=== PATIENT | male | born 1970 | race Caucasian/White ===

== ENCOUNTER 2022-07-04 08:41 | Outpatient (CLI) | payer OTHER, SELFPAY ==
[2022-07-04 15:59] LABS: Cholesterol* 203 mg/dL (90-199); Glucose* 95 mg/dL (60-115); HDL Cholesterol* 68 mg/dL (>=40); LDL Cholesterol Calculated 120 mg/dL (<100); Triglycerides* 74 mg/dL (40-149)
[2022-07-04 16:28] LABS: PSA Screen* 1.81 ng/mL (0.10-4.00)
[2022-07-06 09:47] LABS: Testosterone, Adult Male 770 ng/dL (300-890)
== END 2022-07-04 08:42 | disposition home or self-care (01) ==
PROVIDERS: PCP Nurse Practitioner Family; Visit Provider Nurse Practitioner Family
DX: Z00.00 Encounter for general adult medical examination without abnormal findings (principal); R79.89 Other specified abnormal findings of blood chemistry; R03.0 Elevated blood-pressure reading, without diagnosis of hypertension; Z13.1 Encounter for screening for diabetes mellitus; Z12.5 Encounter for screening for malignant neoplasm of prostate; Z13.6 Encounter for screening for cardiovascular disorders
CPT/HCPCS: 80061; 82947; 84153; 84403

== ENCOUNTER 2023-06-16 15:46 | Outpatient (CLI) | payer BC, SELFPAY ==
--- NOTE | 2023-06-16 16:00 | CRLHL7_ITS ---
For Patients: As a result of the Century Cures Act, medical imaging exams and procedure reports are released immediately into your electronic medical record. You may view this report before your referring provider. If you have questions, please contact your health care provider. Indication: Lump Technique: Grayscale and color Doppler ultrasound of the right lower back above the gluteal region performed corresponding to the area of concern. Comparison: None Findings: Normal soft tissues are present. No fluid collection or mass. No abnormal vascularity. Impression: Negative sonogram. No suspicious findings. Dictated by Hernesto Mendes MD @ 06/18/2023 9:13:05 AM (Electronically Signed)
== END 2023-06-16 15:47 | disposition home or self-care (01) ==
LOC: US 15:47
PROVIDERS: PCP Nurse Practitioner Family; Visit Provider Nurse Practitioner Family
DX: M54.9 Dorsalgia, unspecified (principal)
CPT/HCPCS: 76705

== ENCOUNTER 2023-07-20 09:00 | Outpatient (RCR) | payer BC, SELFPAY | END 2023-11-17 23:59 | disposition home or self-care (01) | PROVIDERS: PCP Nurse Practitioner Family; Visit Provider Nurse Practitioner Family | DX: M54.9 Dorsalgia, unspecified (principal); Z51.89 Encounter for other specified aftercare | CPT/HCPCS: 97110; 97140; 97161 ==

== ENCOUNTER 2024-01-29 18:00 | Emergency (ER) | payer BC, SELFPAY ==
[2024-01-29 18:11] VITALS: BP 138/78; PULSE 73; RESP 18; TEMP 37.3; O2SAT 97; BMI 33.5
--- NOTE | 2024-01-29 18:18 | ED_ITS ---
HPI - Abdominal Pain General Time Seen by Provider: 18:18 Date Seen: 01/29/24 Chief Complaint: Abdominal Pain Stated Complaint: Abdominal pain Time Seen by Provider: 01/29/24 18:18 Source: patient, family and RN notes reviewed Mode of arrival: ambulatory Limitations: no limitations History of Present Illness HPI narrative: Andrew is a very pleasant 53-year-old gentleman previously healthy who comes to the emergency room for evaluation of left lower quadrant pain. Patient noted the onset of an aching type left lower quadrant pain last evening. He states he feels bloated and that he feels like if he could just have a bowel movement or passed some gas the symptoms would improve. He notes some loose stools last night that were nonbloody. He notes some mild nausea today. Today he now has worsening discomfort that he describes as sharp. He denies any hematuria dysuria or history of kidney stones. He has no family history or personal history of diverticulitis or colitis. Even movement increases his discomfort. He has not taken any medication for pain at this point. Pain possibly radiates into his back. Previous colonoscopy 2-3 years ago and was normal. Related Data Home Medications ?Medication ?Instructions ?Recorded ?Confirmed No Known Home Medications 06/08/23 06/08/23 Allergies Allergy/AdvReac Type Severity Reaction Status Date / Time No Known Allergies Allergy Unknown Verified 01/29/24 18:49 Review of Systems Status of ROS Reports: 10 or more systems reviewed and unremarkable except as noted in History and below Const Denies: fever, chills or fatigue Eyes Denies: change in vision ENMT Denies: neck pain or nasal congestion Cardio Reports: lightheadedness; Denies: chest pain, palpitations, swelling of feet/ankles or shortness of breath with exertion Resp Denies: shortness of breath or cough GI Reports: abdominal pain and nausea; Denies: vomiting Denies: painful urination, urinary frequency, urinary urgency or blood in urine Musculo Denies: neck pain Endo Denies: fatigue PFSH PFSH Surgical History History of hand surgery ?Z98.890 - Other specified postprocedural states (ICD-10) Family History Father Myocardial infarction Smoker Heart failure Brother Depression Uncle Schizophrenia Social History Narrative: . 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 Formal exercise, both cardio and weight. Non-smoker. Alcohol, 4 servings per week. No illicit drug use. Smoking Status: Never smoker Little interest or pleasure in doing things: not at all Feeling down, depressed, or hopeless: not at all Exam Narrative: Exam Narrative: Andrew is alert and oriented. No acute distress. He is nontoxic in appearance. External ears eyes nose clear. Mentation is normal. Heart with regular rate and rhythm and lungs are clear to auscultation. No CVA tenderness with percussion. Abdomen shows left lower quadrant tenderness. No masses are palpated. Abdomen is otherwise soft. Lower extremities without edema. Moving all extremities. Const: Vital Signs, click to edit/add: Vital Signs - 24 hr 01/29/24 18:11 01/29/24 20:06 Temperature 99.2 F Pulse Rate [Pulse Oximeter] 73 81 Respiratory Rate 18 16 Blood Pressure [Ri ght Upper Arm] 138/78 146/82 H Pulse Oximetry 97 96 Oxygen Delivery Me thod Room Air Room Air Documenting provider has reviewed patient's vital signs: yes Course Course ED Course: Differential diagnosis includes but is not limited to diverticulitis, colitis, constipation, ureteral colic. Will place IV give 1 L of normal saline, Toradol 50 mg IV, Zofran 4 mg IV. Will check urinalysis CBC comprehensive panel CRP. Reevaluation(s) Reevaluation #1: Patient much improved after dose of Toradol and Zofran as well as a L of fluid. Vital Signs Vital signs: Initial Vital Signs Temperature 99.2 F 01/29/24 18:11 Temperature Source Temporal Artery Scan 01/29/24 18:11 Pulse Rate 73 01/29/24 18:11 Respiratory Rate 18 01/29/24 18:11 Blood Pressure 138/78 01/29/24 18:11 Blood Pressure Mean 98 01/29/24 18:11 Pulse Oximetry 97 01/29/24 18:11 Oxygen Delivery Method Room Air 01/29/24 18:11 Vital Signs Temperature 99.2 F 01/29/24 18:11 Pulse Rate 73 01/29/24 18:11 Respiratory Rate 18 01/29/24 18:11 Blood Pressure 138/78 01/29/24 18:11 Pulse Oximetry 97 01/29/24 18:11 Oxygen Delivery Method Room Air 01/29/24 18:11 Temperature 99.2 F 01/29/24 18:11 Pulse Rate 81 01/29/24 20:06 Respiratory Rate 16 01/29/24 20:06 Blood Pressure 146/82 H 01/29/24 20:06 Pulse Oximetry 96 01/29/24 20:06 Oxygen Delivery Method Room Air 01/29/24 20:06 Medications Administered Medications: Discontinued Medications Generic Name Dose Route Start Last Admin Trade Name Мария PRN Reason Stop Dose Admin Sodium Chloride 1,000 mls @ 1,000 mls/hr 01/29/24 18:33 01/29/24 20:06 0.9 % Sodium Chloride 1000 Ml IV 01/29/24 19:32 Infused .Q1H SRIDEVI Infusion Ketorolac Tromethamine 15 mg 01/29/24 18:33 01/29/24 19:11 Ketorolac 15 Mg/Ml Inj IVP 01/29/24 18:34 15 mg ONCE ONE Administration Ondansetron HCl 4 mg 01/29/24 18:33 01/29/24 19:11 Ondansetron 2 Mg/Ml Inj IVP 01/29/24 18:34 Not Given ONCE ONE MDM - Abdominal Pain MDM Narrative Medical decision making narrative: 1. Colitis-patient noted to have CT confirm colitis. I have spoken to our surgeon on-call Dr. Santiago in regards to this patient. She is wondering if there is maybe also an element of diverticulitis. At this time recommending the use of an antibiotic. Will place Andrew on Augmentin 875 p.o. b.i.d. x7 days. For pain ibuprofen may be used. Her pain not relieved by ibuprofen I have provided Auburn 5/3 25 1-2 tablets p.o. Q 4-6 hours as needed 10. Tablets. Both of these medications were given out via [employer] machine. Soft diet. Would recommend use of Colace for stool softening 2. Disposition-home at this time. Follow-up primary MD next week for re- evaluation. Return to the emergency room for fever, worsening pain, vomiting and as needed. Medical Records Attestation: I reviewed the patient's medical records. Lab Data Attestation: I reviewed the patient's lab results. Labs: Lab Results 01/29/24 Range/Units 18:44 WBC 9.45 (4.50-11.00) K/uL RBC 4.66 (4.30-5.90) m/uL Hgb 13.6 (13.5-17.5) gm/dL Hct 40.8 (37.0-53.0) % MCV 88 (80-100) fL MCH 29 (26-34) pg MCHC 33 (32-36) gm/dL RDW Coeff of Isabel 13.7 (11.5-15.5) % Plt Count 240 (140-440) K/uL Neut % (Auto) 86.3 H (42.0-72.0) % Lymph % (Auto) 7.7 L (20-44) % Jackson % (Auto) 4.8 (0.0-11.0) % Eos % (Auto) 0.6 (0.0-7.0) % Baso % (Auto) 0.3 (0.0-3.0) % Neut # (Auto) 8.20 H (1.7-7.0) K/uL Lymph # (Auto) 0.70 L (0.90-2.90) K/uL Jackson # (Auto) 0.50 (0.00-0.90) K/UL Eos # (Auto) 0.06 (0.00-0.50) K/uL Baso # (Auto) 0.03 (0.00-0.30) K/uL Abs Immat Gran (auto) 0.03 (0.00-0.30) K/uL Imm/Tot Granulo (auto) 0.3 % Sodium 137 (135-149) mmol/L Potassium 3.9 (3.6-5.1) mmol/L Chloride 102 (96-114) mmol/L Carbon Dioxide 27 (20-32) mmol/L Anion Gap 8 (7-15) mEq/L BUN 16 (7-30) mg/dL Creatinine 0.9 (0.5-1.5) mg/dL Estimated Creat Clear 102.26 Estimated GFR 103 ml/min Glucose 107 (60-115) mg/dL Calcium 9.4 (8.4-10.6) mg/dL Total Bilirubin 1.1 (0.1-1.5) mg/dL AST 31 (12-35) U/L ALT 21 (4-50) U/L Alkaline Phosphatase 51 (40-150) U/L C-Reactive Protein 0.5 (0.5-1.0) mg/dL Total Protein 7.1 (6.0-8.3) g/dL Albumin 4.5 (3.3-5.0) g/dL Imaging Data Abdominal CT: Attestation: I have reviewed the pertinent imaging results. My impression: I do note significant inflammation in the descending colon with surrounding stranding. Radiologist's impression: Lower chest: Unremarkable. Liver: Too small to characterize low-attenuation lesions in the liver Gallbladder and bile ducts: No stones or inflammation. No biliary dilatation. Pancreas: Unremarkable. No mass or inflammation. Spleen: Normal in size. No masses. Adrenal glands: Normal in size. No nodules. Kidneys: Normal in size. No suspicious masses, stones, or hydronephrosis. GI tract: Normal appendix. Colonic wall thickening inflammatory stranding along the descending colon. Mild diverticulosis. Vasculature: Abdominal aorta is normal in caliber. Lymph nodes: No lymphadenopathy. Pelvis: Enlarged prostate gland wall thickening of the urinary bladder nondistended Bones: Unremarkable for age. IMPRESSION: 1. Colitis involving the descending colon Discharge Plan Discharge Clinical Impression: Colitis Patient Disposition: Home, Self-Care Condition: Improved Additional Instructions: 1. The CT shows colitis or inflammation of the colon. There may be an underlying diverticulitis which is infection. We are going to treat you with a medicine called Augmentin for 7 days. You can pick this up in our [employer] machine in our lobby. 2. Ibuprofen may be used as needed for discomfort. A few tablets of Auburn which is a narcotic and Tylenol called hydrocodone is also available in our vending machine. Do not use alcohol or drive when using this medication as it is sedating. Know that this medicine may cause constipation and I think it would be a very good idea if you were put on a stool softener such as Colace for the duration of your treatment. Colace is [id number]. 3. Follow-up with your primary care provider next week for recheck. They may wish to extend your antibiotics if you still have symptoms. 4. Return to the emergency room if you develop increasing pain, vomiting, high fever and as needed. Prescriptions: No Action No Known Home Medications Follow Up/Referrals: Aaliyah Shea APRN, [employer] [facility]ER [Primary Care Provider] - Stand Alone Forms: [employer] Info Instructions
--- NOTE | 2024-01-29 18:33 | CRLHL7_ITS ---
For Patients: As a result of the Century Cures Act, medical imaging exams and procedure reports are released immediately into your electronic medical record. You may view this report before your referring provider. If you have questions, please contact your health care provider. INDICATION: Left lower quadrant pain TECHNIQUE: CT abdomen and pelvis with 118 cc of Isovue 370 COMPARISON: None. FINDINGS: Lower chest: Unremarkable. Liver: Too small to characterize low-attenuation lesions in the liver Gallbladder and bile ducts: No stones or inflammation. No biliary dilatation. Pancreas: Unremarkable. No mass or inflammation. Spleen: Normal in size. No masses. Adrenal glands: Normal in size. No nodules. Kidneys: Normal in size. No suspicious masses, stones, or hydronephrosis. GI tract: Normal appendix. Colonic wall thickening inflammatory stranding along the descending colon. Mild diverticulosis. Vasculature: Abdominal aorta is normal in caliber. Lymph nodes: No lymphadenopathy. Pelvis: Enlarged prostate gland wall thickening of the urinary bladder nondistended Bones: Unremarkable for age. IMPRESSION: 1. Colitis involving the descending colon. Please note that all CT scans at this facility use dose modulation, iterative reconstruction, and/or weight-based dosing when appropriate to reduce radiation dose to as low as reasonably achievable. Dictated by Thalia Caldera MD @ 01/29/2024 7:38:25 PM (Electronically Signed)
[2024-01-29 18:52] LABS: Basophils Absolute Auto 0.03 K/uL (0.00-0.30); Basophils Percent Auto 0.3 % (0.0-3.0); Eosinophils Absolute Auto 0.06 K/uL (0.00-0.50); Eosinophils Percent Auto 0.6 % (0.0-7.0); Hematocrit 40.8 % (37.0-53.0); Hemoglobin* 13.6 gm/dL (13.5-17.5); Immature Granulocytes Abs Auto 0.03 K/uL (0.00-0.30); Immature Granulocytes Pct Auto 0.3 %; Lymphocytes Percent Auto 7.7 % (20-44); Mean Corpuscular HGB Conc 33 gm/dL (32-36); Mean Corpuscular Hemoglobin 29 pg (26-34); Mean Corpuscular Volume 88 fL (80-100); Monocytes Percent Auto 4.8 % (0.0-11.0); Neutrophils Percent Auto 86.3 % (42.0-72.0); Platelet Count* 240 K/uL (140-440); RDW Coefficient of Variation % 13.7 % (11.5-15.5); Red Blood Count 4.66 m/uL (4.30-5.90); White Blood Count* 9.45 K/uL (4.50-11.00)
[2024-01-29 19:06] LABS: Albumin* 4.5 g/dL (3.3-5.0); Chloride* 102 mmol/L (96-114)
[2024-01-29 19:07] LABS: Potassium* 3.9 mmol/L (3.6-5.1); Sodium* 137 mmol/L (135-149)
[2024-01-29 19:09] LABS: Creatinine* 0.9 mg/dL (0.5-1.5); Est. Creatinine Clearance* 102.26; Estimated Glomerular Filt Rate 103 ml/min
[2024-01-29 19:10] LABS: Alanine Aminotransferase* 21 U/L (4-50); Alkaline Phosphatase* 51 U/L (40-150); Anion Gap 8 mEq/L (7-15); Aspartate Amino Transferase* 31 U/L (12-35); Bilirubin Total* 1.1 mg/dL (0.1-1.5); Blood Urea Nitrogen* 16 mg/dL (7-30); Calcium* 9.4 mg/dL (8.4-10.6); Carbon Dioxide* 27 mmol/L (20-32); Glucose* 107 mg/dL (60-115); Total Protein* 7.1 g/dL (6.0-8.3)
[2024-01-29] MEDS: 0.9 % SODIUM CHLORIDE 1000 ml 1,000 ML IV (19:11)
[2024-01-29] MEDS: KETOROLAC 15 MG/ML inj IVP (19:11)
[2024-01-29 19:13] LABS: C Reactive Protein* 0.5 mg/dL (0.5-1.0)
[2024-01-29 19:31] LABS: Slide Review Reflex No
[2024-01-29 20:04] LABS: Appearance Urine Clear (Clear); Bilirubin Urine Negative (Negative); Blood Urine Negative (Negative); Color Urine Yellow (Yellow); Glucose Urine Negative (Negative); Ketones Urine 2+ (Negative); Leukocyte Esterase Urine Negative (Negative); Nitrite Urine Negative (Negative); Protein Urine Negative (Negative); Specific Gravity Urine <= 1.005 (1.000-1.030); Urobilinogen Urine 0.2 (0.2-1.0)
[2024-01-29 20:06] VITALS: BP 146/82; PULSE 81; RESP 16; O2SAT 96
[2024-01-29 20:32] LABS: RBC Urine 0-2 (0-2); Squamous Epithelial Cell Urine Few (None-Few); WBC Urine 0-2 (0-5)
== END 2024-01-29 20:07 | disposition home or self-care (01) ==
PROVIDERS: Emergency Provider Family Medicine; PCP Nurse Practitioner Family
DX: K52.9 Noninfective gastroenteritis and colitis, unspecified (principal)
CPT/HCPCS: 36415; 74177; 80053; 81001; 85025; 86140; 99284; 99285; J1885; J7030; Q9967

== ENCOUNTER 2024-02-02 09:34 | Outpatient (CLI) | payer BC, SELFPAY | END 2024-02-02 09:35 | disposition home or self-care (01) | LOC: KYNREF 09:34 | PROVIDERS: PCP Nurse Practitioner Family; Visit Provider Nurse Practitioner Family | DX: Z12.5 Encounter for screening for malignant neoplasm of prostate (principal) | CPT/HCPCS: G0103 ==

== ENCOUNTER 2024-03-14 07:11 | Outpatient (CLI) | payer BC, SELFPAY ==
--- OUTSIDE RECORDS SUMMARY | 2024-03-14 07:14 | XMS_ITS | Data Portability ---
Author Organization [place] [facility], [facility] Address [address] [place] [address] Assessment No assessment recorded. Plan of Treatment Reminders Order Date Submit Date Provider Last Modified By Organization Details Last Modified Time Details Appointments ESTABLISH ED 10 2024 09:50A Jey Gloria MD Not available Not available Not available Lab liquid biopsy, prostate, urine 2023 [facility], [address] [address] [facility], [place], [address], 03/04/2024 09:25:34 urinalysi s, dipstick 2023 024 [email or web address] [facility], [facility], [address], [place], [address], 02/16/2024 12:45:14 Referral None recorded. Procedures bladder scan (PROC) 2023 024 [email or web address] [facility], [facility], [address], [place], [address], 02/16/2024 12:45:14 Surgeries None recorded. Imaging None recorded. Medication Orders None recorded. Patient TargetsNo targets recorded. Patient Instructions Encounter Date Encounter Id Patient Instructions Last Modified By Organization Details Last Modified Time 02/16/2024 [id number] not keen on med taking at this point, PSA up almost 1 point in 18 months, will send select MDX and call with report. [email or web address] Not available 02/16/2024 12:44:30 Reason for Referral None Reported. Results Created Date Observation Date Name Description Value Unit Range Abnormal Flag Note LastModifiedBy Organization Detail LastModifiedTime 02/16/2002/16/2024 urina lysis , dipst ick Color-Status Yellow Not Available [address], [place], [address], 02/16/2024 12:25:01 02/16/2002/16/2024 urina lysis , dipst ick Clarity-Stat us Clear Not Available [address], [place], [address], 02/16/2024 12:25:01 02/16/2002/16/2024 urina lysis , dipst ick Sp Brandon-Stat us 1.010 Not Available [address], [place], [address], 02/16/2024 12:25:01 02/16/2002/16/2024 urina lysis , dipst ick pH-Status 5.5 Not Available [address], [place], [address], 02/16/2024 12:25:01 02/16/2002/16/2024 urina lysis , dipst ick Nitrates-Sta tus negati ve Not Available [address], [place], [address], 02/16/2024 12:25:01 02/16/20 24 02/16/2024 urina lysis , dipst ick Blood-Status Negati ve Not Available [address], [place], [address], 02/16/2024 12:25:01 02/16/20 24 02/16/2024 urina lysis , dipst ick Leuko-Status Negati ve Not Available [address], [place], [address], 02/16/2024 12:25:01 02/16/20 24 02/16/2024 urina lysis , dipst ick Specimen Type Voided Not Available [address], [place], [address], 02/16/2024 12:25:01 02/16/2002/16/2024 bladd er scan (PROC ) Volume (in mL) 113 ml Not Available [address] [place], [place], [address], 02/16/2024 12:25:09 Result Notes None recorded. Problems Name Problem SNOMED Code Status Onset Date Resolution Date Notes Provider Name and Address Organization Details Recorded Time Incomplete emptying of urinary bladder 609910222 Active [facility] 12:39:07 Increased frequency of urination 804797607 Active [facility] 12:39:09 Urgent desire to urinate 50972996 Active [facility] 12:39:10 Problem Notes None recorded. Procedures Surgical History Date Name Laterality Status Provider Name and Address Organization Details Recorded Time Bladder Scan completed [facility] 02/16/2024 12:24:28 colonoscopy completed [facility] 02/16/2024 12:23:47 vasectomy completed [facility] 02/16/2024 12:23:32 Imaging Results None recorded. Procedure Notes None recorded. Medical Equipment None Reported. Allergies No known drug allergies Medications Name Sig Start Date Stop Date Status Note LastModified by Organization Details LastModified Time hydrocodone 5 mg-acetamin ophen 325 mg tablet 02/15 completed Not Available Not Available Not Available penicillin V potassium 500 mg tablet TAKE ONE TABLET (500 MG) BY MOUTH FOUR TIMES A DAY FOR 7 DAYS. 02/15 completed Not Available Not Available Not Available amoxicillin 875 mg-potassiu m clavulanate 125 mg tablet 02/15 completed Not Available Not Available Not Available GaviLyte-G 236 gram-22.74 gram-6.74 gram-5.86 gram oral solution DRINK 240 ML BY MOUTH EVERY 10 MINUTES; UNTIL FECAL EFFLUENT IS CLEAR 02/15 completed Not Available Not Available Not Available Vitals Date Recorded Body height Body mass index (BMI) Body weight Provider Name and Address Organization Details Last Updated DateTime 02/16/2024 182.88 cm 31.9 kg/m2 852649.21 g [place] [facility] 02/16/2024 12:19:34 Social History Question Answer Notes LastModified by Organizat ion Details LastModified Time Tobacco Smoking Status [facility] 02/16/2024 12:22:40 What Is Your Level Of Alcohol Consumption? Occasional Information not available 02/16/2024 What Is Your Level Of Caffeine Consumption? Moderate Information not available 02/16/2024 What Was The Date Of Your Most Recent Tobacco Screening? 02/16/2024 Information not available 02/16/2024 Have You Ever Been Counseled For Unhealthy Alcohol Use? No Information not available 02/16/2024 Do You Use Any Illicit Or Recreational Drugs? No Information not available 02/16/2024 Has Tobacco Cessation Counseling Been Provided? No Information not available 02/16/2024 Sex: Unknown Functional Status None recorded. Mental Status None recorded. Family History Relationship Description Onset Age of this Age Resolved Age Notes LastModified by Organization Details LastModified Time Father Heart disease Not available 2023 12:22:10 Notes:Father's side of famil y has history of different types of cancer Medical History Condition Response Other N High Blood Pressure N Kidney Stones N Lung Disease N Depression N GERD/Acid Reflux N Sexually Transmitted Infection N Diabetes N Bleeding Disorder N Cancer N High Cholesterol Y Heart Disease N Immunizations Vaccine Type Date Status Provider Name and Address Organization Details Recorded Time COVID-19, mRNA, LNP-S, PF, 30 mcg/0.3 mL dose 08/29/2020 [facility] 09:34:49 COVID-19, mRNA, LNP-S, PF, 30 mcg/0.3 mL dose 09/19/2020 completed Chanelle [place] null, [facility] 03/08/2024 09:34:49 Tdap 10/24/2011 completed Chanelle [place] null, [facility] 03/08/2024 09:34:49 Influenza, split virus, trivalent, preservative 03/24/2006 [facility]/08[facility]24 09:34:50 Influenza, split virus, trivalent, preservative 04/14/2007 completed Chanelle [place] null, [facility] 03/08/2024 09:34:50 Influenza, split virus, trivalent, PF 04/18/2010 [facility] [place] [facility]/08/2024 09:34:50 typhoid, ViCPs 04/20/2017 [facility] [place] [facility] 03/08/2024 09:34:50 Influenza, split virus, quadrivalent, PF 02/23/2017 [facility]/08/2024 09:34:50 Hep A-Hep B 05/18/2017 [facility]/08[facility] 09:34:50 [facility]-Hep B [facility]/20/2017 [facility] 09:34:50 Past Encounters Encounter ID Performer Location Encounter Start Date Encounter Closed Date Diagnosis/Indication Diagnosis SNOMED-CT Code Diagnosis ICD10 Code [id number] Len Roblero [facility] [address] [place] [address] 02/16/2024 11:47:33 02/17/2024 10:11:09 Increased frequency of urination 952995737 R35.0 Urgent raciel ekaterina to urinate 34847833 R39.15 Incomplete emptying of urinary bladder 598653297 R39.14 Prostate s pecific antigen above reference range 547684052 R97.20 Health Concerns Section Related Observation LastModified by Organization Detai ls LastModified Time None Recorded Concern Status LastModified by Organization Details LastModified Time None Recorded Advance Directives Directive None Recorded Payers Encounter Date Sequence Insurance Name Policy Number Policy Sanchez Covered Member ID Sanchez Member ID Guarantor Name 02/16/2024 1 [employer] FABBY NELSON (PPO) [id number] Lilian Rodriguez [id number] Andrew Rodriguez Notes Date Note Type Note Provider Name and Address Organization Details Recorded Time 02/16/2024 text/html HPI Notes: seein g for bladder wall thickened on CT scan done for diverticular disease. has chronic urgency/frequency since a young adult. UA clear and PVR 113ml today. PSA 2.79 2 weeks ago, 1.81 eighteen months ago. [place] [facility] 02/16/2024 12:49:51
--- OUTSIDE RECORDS SUMMARY | 2024-03-14 07:14 | XMS_ITS | Continuity of Care Document ---
Author Organization [place] [facility], _[facility] Address [address] [place] [address] [place] [phone] Assessment No assessment recorded. Plan of Treatment Reminders Order Date Submit Date Provider Last Modified By Organization Details Last Modified Time Details Appointments ESTABLISH ED 10 2024 09:50A M Roni Gloria MD Not available Not available Not available Lab liquid biopsy, prostate, urine 2023 [facility], [address] [place], [address], 03/04/2024 09:25:34 urinalysi s, dipstick 2023 024 [email or web address] [facility], [facility], [address] [facility], [place], [address], 02/16/2024 12:45:14 Referral None recorded. Procedures bladder scan (PROC) 2023 024 [email or web address] [facility], [facility], [address] [facility], [place], [address], 02/16/2024 12:45:14 Surgeries None recorded. Imaging None recorded. Medication Orders None recorded. Patient TargetsNo targets recorded. Patient Instructions Encounter Date Encounter Id Patient Instructions Last Modified By Organization Details Last Modified Time 02/16/2024 [id number] not keen on med taking at this point, PSA up almost 1 point in 18 months, will send select MDX and call with report. [email or web address] Not available 02/16/2024 12:44:30 Reason for Referral None Reported. Results Created Date Observation Date Name Description Value Unit Range Abnormal Flag Note LastModifiedBy Organization Detail LastModifiedTime 02/16/2002/16/2024 urina lysis , dipst ick Color-Status Yellow Not Available [address], [place], [address], 02/16/2024 12:25:01 02/16/2002/16/2024 urina lysis , dipst ick Clarity-Stat us Clear Not Available [address], [place], [address], 02/16/2024 12:25:01 02/16/2002/16/2024 urina lysis , dipst ick Sp [place]-Stat us 1.010 Not Available [address], [place], [address], 02/16/2024 12:25:01 02/16/2002/16/2024 urina lysis , dipst ick pH-Status 5.5 Not Available [address], [place], [address], 02/16/2024 12:25:01 02/16/2002/16/2024 urina lysis , dipst ick Nitrates-Sta tus negati ve Not Available [address], [place], [address], 02/16/2024 12:25:01 02/16/2002/16/2024 urina lysis , dipst ick Blood-Status Negati ve Not Available [address], [place], [address], 02/16/2024 12:25:01 02/16/20 24 02/16/2024 urina lysis , dipst ick Leuko-Status Negati ve Not Available [address], [place], [address], 02/16/2024 12:25:01 02/16/20 24 02/16/2024 urina lysis , dipst ick Specimen Type Voided Not Available [address], [place], [address], 02/16/2024 12:25:01 02/16/2002/16/2024 bladd er scan (PROC ) Volume (in mL) 113 ml Not Available [address] [place], [place], [address], 02/16/2024 12:25:09 Result Notes None recorded. Problems Name Problem SNOMED Code Status Onset Date Resolution Date Notes Provider Name and Address Organization Details Recorded Time Incomplete emptying of urinary bladder 660129491 Active [facility] 12:39:07 Increased frequency of urination 159643225 Active [facility] 12:39:09 Urgent desire to urinate 70110865 Active [facility] 12:39:10 Problem Notes None recorded. Procedures Surgical History Date Name Laterality Status Provider Name and Address Organization Details Recorded Time [facility] 02/16/2024 12:24:28 colonoscopy completed [facility] 02/16/2024 12:23:47 vasectomy completed [facility] [...] Available Not Available Not Available amoxicillin 875 mg-pothubertu m clavulanate 125 mg tablet 02/15 completed [...] Updated DateTime 02/16/2024 182.88 cm 31.9 kg/m2 287277.[address] [facility] 02/16/2024 12:19:34 Social History Question Answer Notes LastModified by Organizat ion Details LastModified Time Tobacco Smoking Status [facility] 02/16/2024 [...] Disease N Depression N GERD/Acid Reflux N Diabetes N Sexually Transmitted Infection N Bleeding Disorder N Cancer N High Cholesterol Y Heart Disease N Immunizations Vaccine Type Date Status Provider Name and Address Organization Details Recorded Time COVID-19, mRNA, LNP-S, PF, 30 mcg/0.3 mL dose 08/29/2020 [facility] [place] [place] [facility]/08/[facility]24 09:34:49 COVID-19, mRNA, LNP-S, PF, 30 mcg/0.3 mL dose 09/19/2020 completed [place] null, [facility] 03/08/2024 09:34:49 Tdap 10/24/2011 completed Chanelle Natasha null, [facility] 03/08/2024 09:34:49 Influenza, split virus, trivalent, preservative 03/24/2006 completed [place] null, [facility] 03/08/2024 09:34:50 Influenza, split virus, trivalent, preservative 04/14/2007 completed [place] null, [facility] 03/08/2024 09:34:50 Influenza, split virus, trivalent, PF 04/18/2010 completed Chanelle Natasha null, [facility] 03/08/2024 09:34:50 typhoid, ViCPs 04/20/2017 [facility] [place] [facility] 03/08/2024 09:34:50 Influenza, split virus, quadrivalent, PF 02/23/2017 completed Chanelle Natasha null, [facility] 03/08/2024 09:34:50 Hep A-Hep B 05/18/2017 completed Chanelle Natasha null, [facility] 03/08/2024 09:34:50 Hep A-Hep B 04/20/2017 [facility] [place] [place] [facility] 03/08/2024 09:34:50 Past Encounters Encounter ID Performer Location Encounter Start Date Encounter Closed Date Diagnosis/Indication Diagnosis SNOMED-CT Code Diagnosis ICD10 Code [id number] Len Roblero [facility] [address] [facility],[address] [place] [address] 02/16/2024 11:47:33 02/17/2024 10:11:09 Increased frequency of urination 628151316 R35.0 Urgent raciel ekaterina to urinate 01084874 R39.15 Incomplete emptying of urinary bladder 648934514 R39.14 Prostate s pecific antigen above reference range 319593816 R97.20 Health Concerns Section Related Observation LastModified by Organization Detai ls LastModified Time None Recorded Concern Status LastModified by Organization Details LastModified Time None Recorded Payers Encounter Date Sequence Insurance Name Policy Number Policy Sanchez Covered Member ID Sanchez Member ID Guarantor Name 02/16/2024 1 [employer] FABBY NELSON (PPO) [id number] Lilian Rodriguez [id number] Andrew Rodriguez Notes Date Note Type Note Provider Name and Address Organization Details Recorded Time 02/16/2024 text/html HPI Notes: seehéctor g for bladder wall thickened on CT scan done for diverticular disease. has chronic urgency/frequency since a young adult. UA clear and PVR 113ml today. PSA 2.79 2 weeks ago, 1.81 eighteen months ago. [place] [facility] 02/16/2024 12:49:51
--- NOTE | 2024-03-14 08:43 | W.ANESCHARGE ---
Anesthesia Charges Start Date/Time Anesthesia Start Date: 03/14/24 Anesthesia Start Time: 08:20 Stop Date/Time Anesthesia Stop Date: 03/14/24 Anesthesia Stop Time: 08:40
--- NOTE | 2024-03-14 08:57 | W.ANESCHARGE ---
Anesthesia Charges Start Date/Time Anesthesia Start Date: 03/14/24 Anesthesia Start Time: 08:20 Stop Date/Time Anesthesia Stop Date: 03/14/24 Anesthesia Stop Time: 08:40
== END 2024-03-14 07:12 | disposition home or self-care (01) ==
LOC: OP CLINIC 07:12
PROVIDERS: PCP Nurse Practitioner Family; Visit Provider Internal Medicine
DX: R10.84 Generalized abdominal pain (principal); K57.30 Diverticulosis of large intestine without perforation or abscess without bleeding
CPT/HCPCS: 00811; 45380; 88305; J2704